=== PATIENT | male | born 1980 | race Hispanic/Latino ===

== ENCOUNTER 2017-02-15 20:55 | Emergency (ER) | payer SELFPAY | END 2017-02-15 21:17 | disposition E | DRG 298 | LOC: ED 20:55 | DX: I46.9 Cardiac arrest, cause unspecified (principal); S01.83XA Puncture wound without foreign body of other part of head, initial encounter; Y92.009 Unspecified place in unspecified non-institutional (private) residence as the place of occurrence of the external cause ==